=== PATIENT | female | born 1970 | race Caucasian/White ===

== ENCOUNTER 2016-11-24 12:50 | Emergency (ER) | payer MEDICAID ==
[2016-11-24 12:51] VITALS: BMI 36.8
[2016-11-24 13:52] VITALS: TEMP 98.7
[2016-11-24] MEDS ORDERED: OXYCODONE HCL 5 MG TABLET PO ONE ×2 (14:22→14:23)
--- NOTE | 2016-11-24 14:25 | EDPRACDOC ---
- General Chief Complaint: Fall Stated Complaint: FALL, NECK/L ARM/ LOWER BACK PAIN Time Seen by Provider: 11/24/16 14:16 Information Source: Patient - History of Present Illness Onset: 1145 today HPI: PT STATES FELL BACKWARDS TRYING TO PUT WOOD IN STOVE THEN WOODEN DOOR AND LADDER LANDED ON TOP OF HER HITTING HER IN THE HEAD PT C/O POSTERIOR NECK PAIN RADIATING DOWN INTO BILATERAL SHOULDERS AND STARTED HAVING LOW BACK PAIN AFTER ARRIVED TO THE ED. Pain Severity: Reports: Moderate Injuries/Pain Location: Reports: head, neck, back Reason for Fall: Reports: tripped Loss of Consciousness: no loss of consciousness Modifying Factors: improves with: movement Associated Symptoms (Fall): Reports: neck pain, other (LOW BACK PAIN) Allergies/Adverse Reactions: Allergies No Known Allergies Allergy (Verified 11/24/16 14:20) Home Medications: Ambulatory Orders Aspirin (Enteric Coated) [Halfprin] 81 mg PO DAILY 12/08/13 Clonazepam 0.5 mg PO TID 12/08/13 Dicyclomine HCl [Bentyl] 10 mg PO Q6H PRN 12/08/13 Divalproex Sodium [Depakote Sprinkle] 375 mg PO BID 12/08/13 Escitalopram Oxalate [Lexapro] 20 mg PO DAILY 12/08/13 Folic Acid 1 mg PO BID 12/08/13 Gemfibrozil [Lopid] 600 mg PO DAILY 12/08/13 Pravastatin [Pravachol] 40 mg PO BID 12/08/13 Albuterol Sulfate [Albuterol Sulfate Hfa] 1 - 2 puff INH Q4H PRN 04/29/14 Albuterol Sulfate [Ventolin] 2.5 mg NEB Q6H 04/29/14 Hydrocodone Bit/Acetaminophen [Lortab 5/325] 1 tab PO Q4H PRN #15 tab 03/14/15 Nebulizer [Erapid Nebulizer] 1 each MC UNK 03/14/15 Prednisone [Deltasone, Orasone] 20 mg PO DAILY #24 tab 03/14/15 Albuterol Sulfate 2.5 mg NEB Q6H PRN 05/31/15 Albuterol Sulfate [Proair Hfa] 2 puff INH Q6H PRN 05/31/15 Aspirin [Aspirin EC] 81 mg PO DAILY 05/31/15 CYANOCOBALAMIN (Vitamin B-12) [Vitamin B-12 (cyanocobalamin)] 1,000 mcg IM .MONTHLY 05/31/15 ClonazePAM [Klonopin] 0.5 mg PO BID PRN 05/31/15 Diazepam [Valium] 5 mg PO TID PRN #15 tablet 05/31/15 Escitalopram Oxalate [Lexapro] 20 mg PO BID 05/31/15 Levothyroxine Sodium [Synthroid] 175 mcg PO DAILY 05/31/15 Nebulizer [Erapid Nebulizer] 1 each MC .UNKNOWN 05/31/15 Oxycodone HCl/Acetaminophen [Percocet 5-325 mg Tablet] 1 tab PO Q6H PRN #20 tab 05/31/15 Pravastatin [Pravachol] 40 mg PO HS 05/31/15 Oxycodone Immediate Release [Oxycodone Immediate Release (OxyIR)] 5 mg PO Q6H PRN #10 tab 08/12/15 Silver Sulfadiazine [Silvadene] 20 gm TOP BID 7 Days 08/12/15 Cyclobenzaprine HCl [Flexeril] 10 mg PO TID #14 tablet 11/24/16 Hydrocodone Bit/Acetaminophen [Hydrocodon-Acetaminophen 5-325] 1 tab PO Q6H PRN #14 tab 11/24/16 ED Past Medical History - History Reviewed Yes Nurses notes reviewed and agree except as marked Travel Outside of [place] in the Last 3 Months?: No - Patient Medical History Neurological History: Reports: Seizures Cardiac History: Reports: Hypercholesterolemia Respiratory History: Reports: Asthma, COPD, Chronic Bronchitis Psychological History: Reports: Anxiety, Schizophrenia. Denies: Depression Systemic History: Reports: Anemia, Hyperthyroidism (S/P RADIATION THAT DESTROYED THYROID NOW ON SYNTHROID) - Family Medical History Reports: Hypertension (MOM, DAD, SISTER), Diabetes (MOM, DAD, SISTER), Stroke ( SISTER), Cardiac Disorders (DAD). Denies: Cancer - Social Medical History Smoking Status: Heavy tobacco smoker (5 or more cigarettes/day or daily pipe/ cigar) ETOH: None Substance Abuse: None Lives With: Other Lives In: Home EDM Review of Systems - Review of Systems ROS Negative Except as Marked: Yes All systems reviewed and were negative except as marked Constitutional: No Symptoms Reported. negative: Fever, Chills, Weakness, Fatigue, Loss of Appetite Eyes: No Symptoms Reported. negative: Redness, Blurred Vision, Double Vision, Discharge, Pain, Light Sensitive, Photophobia Ears: No Symptoms Reported. negative: Pain, Hearing Loss, Drainage, Ear Pulling Throat: No Symptoms Reported. negative: Pain, Swelling Nose: No Symptoms Reported. negative: Congestion, Bleeding, Discharge, Injection, Swelling, Deformity, Ecchymosis, Tender, Abrasion, Laceration Mouth: No Symptoms Reported. negative: Pain, Drooling Respiratory: No Symptoms Reported. negative: Cough, Brassy Cough, Barky Cough, Shortness of Breath, Wheezing, Hemoptysis Cardiovascular: No Symptoms Reported. negative: Chest Pain, Palpitations, Syncope, Edema, Orthopnea, PND, Skin Mottling, Cyanosis Gastrointestinal: No Symptoms Reported. negative: Pain, Constipation, Nausea, Vomiting, Diarrhea, Melena, Formula Intolerance Genitourinary: No Symptoms Reported. negative: Dysuria, Hematuria, Frequency, Discharge, Bleeding, Testicular Pain, Neurological: No Symptoms Reported. negative: Headache, Dizziness, Seizure, Numbness, Weakness, Speech Difficulty, Gait Difficulty Musculoskeletal: Back (LSPINE), Neck (POSTERIOR). negative: Arm, Ankle, Chestwall, Elbow, Forearm, Femur, Foot, Hand, Hip, Knee, Leg, Pelvis, Ribs, Shoulder, Wrist Integumentary: No Symptoms Reported. negative: Itching, Rash, Bruising, Wound Allergic/Immunologic: No Symptoms Reported. negative: Hives, Itching Hematologic: No Symptoms Reported. negative: Lymphadenopathy, Easy Bruising, Easy Bleeding Endocrine: No Symptoms Reported. negative: Weight Gain, Weight Loss Psychiatric: No Symptoms Reported. negative: Anxiety, Depression, Hallucinations, Insomnia, Suicidal - Physical Exam Constitutional: Alert (Awake), No apparent distress Oriented to: Time, Person, Place Last recorded Vital Signs: Last Vital Signs Temp 98.7 F 11/24/16 13:46 Pulse 87 11/24/16 13:46 Resp 18 11/24/16 13:46 BP 121/67 11/24/16 13:46 Pulse Ox 97 11/24/16 13:46 Oxygen Pulse Oxygen Saturation 97 O2 Device Room Air Oxygen Flow Rate Fraction of Inspired Oxygen ( FIO2) - HEENT Head: Normal ( normocephalic) Eye Exam: Normal (PERRL, EOMI, Sclera white) Oropharynx: Normal (Pharynx:Moist without exudate,Gums-no swelling) Tympanic Membrane: Normal ENT EAC: Normal TMJ: Normal Nose: No Symptoms Reported (septum midline) Neck: Midline, Paraspinal Tenderness, Tender, Other (PT IN C-COLLAR) - Respiratory/Cardiovascular Respiratory: Normal - CTA (BBS clear to auscultation without adventitious sounds ) Cardiovascular: Normal (RRR without murmur, gallop or rub) - GI Auscultation: Normal (NABS) Palpation: Normal (Soft,No rebound or guarding, non distended) Tenderness: Non tender Amaro's Sign: Negative - Bladder: Normal - Musculoskeletal Back: Lumbar TTP (TO LIGHT PALPATION) Extremities: Normal (Normal tone, Pulses 2+ No cyanosis or edema, FROM) - Integumentary Skin: Normal, Warm, Dry Lymphatics: Normal (no adenopathy) - Neurologic Memory Impaired: Normal Motor Function: Normal (Normal tone, Pulses 2+ No cyanosis or edema, FROM) Cranial Nerve: Normal (CN II-X11 intact sensation, strength 5/5) Cerebellar: Normal Mood Description: Normal Perception: Normal Other Exam Findings: NO OBVIOUS INJURIES NOTED ON EXAM. ED Injury/Fall Exam - Physical Exam Head Injury: no evidence of injury Extremity Exam: no evidence of injury Skin: Normal - Maria T Coma Score Best Eye Response (Maria T): (4) open spontaneously Best Verbal Response (Maria T): (5) oriented Best Motor Response ([place]): (6) obeys commands [place] Total: 15 - Differential Diagnosis Contusion, Fall, Fracture, Sprain, Strain - Diagnostic Imaging CT HD/NK Image interpreted by: Radiologist IMPRESSION: Negative CT of the head and cervical spine. LSPNE Image interpreted by: Radiologist IMPRESSION: 1. No acute finding. 2. Lower lumbar facet arthropathy. Decision Time to Discharge: 16:10 - Departure Disposition: Home Condition: Stable Final Diagnosis: MECHANICAL FALL Blunt head trauma Qualifiers: Encounter type: initial encounter Qualified Code(s): S09.8XXA - Other specified injuries of head, initial encounter Lumbar strain Qualifiers: Encounter type: initial encounter Qualified Code(s): S39.012A - Strain of muscle, fascia and tendon of lower back, initial encounter Instructions: RICE: Routine Care for Injuries, Core Strengthening Exercises ( GEN), Back Pain, Thoracic (Lumbar) Strain Education/Counseling Given To: Patient Education/Counseling Given Regarding: Diagnosis, Treatment, Prognosis, Follow Up Referrals: Vashti Le MD [Primary Care Provider] - One Week Prescriptions: Cyclobenzaprine HCl [Flexeril] 10 mg PO TID #14 tablet Hydrocodone Bit/Acetaminophen [Hydrocodon-Acetaminophen 5-325] 1 tab PO Q6H PRN #14 tab PRN Reason: Pain
--- NOTE | 2016-11-24 15:19 | DIRPT ---
CLINICAL DATA: Fall with head injury EXAM: CT HEAD WITHOUT CONTRAST CT CERVICAL SPINE WITHOUT CONTRAST TECHNIQUE: Multidetector CT imaging of the head and cervical spine was performed following the standard protocol without intravenous contrast. Multiplanar CT image reconstructions of the cervical spine were also generated. COMPARISON: CT head 05/31/2015 FINDINGS: CT HEAD FINDINGS Ventricle size is normal. Negative for acute or chronic infarction. Negative for hemorrhage or fluid collection. Negative for mass or edema. No shift of the midline structures. Calvarium is intact. CT CERVICAL SPINE FINDINGS Normal cervical alignment. No significant degenerative change. Negative for fracture. No focal bony lesion. Soft tissues the nectar negative. IMPRESSION: Negative CT of the head and cervical spine. Electronically Signed By: Sincere Henriquez M.D. On: 11/24/2016 15:17
--- NOTE | 2016-11-24 16:03 | DIRPT ---
CLINICAL DATA: Low back pain from fall. Initial encounter. EXAM: LUMBAR SPINE - COMPLETE 4+ VIEW COMPARISON: 04/29/2016 CT FINDINGS: No acute fracture or subluxation. No disc narrowing. Lower lumbar facet arthropathy with spurring, greatest on the left at L4-5 and on the right at L5-S1. IMPRESSION: 1. No acute finding. 2. Lower lumbar facet arthropathy. Electronically Signed By: Fran Mckay M.D. On: 11/24/2016 16:00
[2016-11-24 16:24] VITALS: BP 111/58; PULSE 61
== END 2016-11-24 16:23 | disposition home or self-care (01) ==
LOC: ED 12:50 → EDMC 16:23
DX: S09.90XA Unspecified injury of head, initial encounter (principal); S39.012A Strain of muscle, fascia and tendon of lower back, initial encounter; W01.198A Fall on same level from slipping, tripping and stumbling with subsequent striking against other object, initial encounter
CPT/HCPCS: 70450; 72110; 72125; 99283; J3490

== ENCOUNTER 2016-11-30 15:48 | Inpatient (IN) | payer MEDICAID ==
[~2016-11-30 15:48] MED LIST: ASPIRIN 325 MG TAB PO SCH
[2016-11-30 16:15] LABS: AUTOMATED BASOPHIL 0.9 % (0-2); AUTOMATED EOSINOPHIL 0.4 % (0-5); AUTOMATED LYMPH 14.2 % (17-44); AUTOMATED MONOCYTE 8.2 % (3-10); AUTOMATED NEUTROPHIL 76.3 % (45-76); MPV 8.4 fL (7.4-10.4)
[2016-11-30 16:28] LABS: CALCIUM 8.4 MG/DL (8.4-10.2); CALCULATED OSMOLALITY 258 MOs/Kg (270-290); CHLORIDE 100 mEq/L (98-107); GLUCOSE 100 MG/DL (70-99); SODIUM LEVEL 136 mEq/L (137-146); TOTAL PROTEIN 7.4 G/DL (6.3-8.2)
[2016-11-30 16:29] LABS: PARTIAL THROMB. TIME 27.7 SEC (22-35); PT-INR 1.1
[2016-11-30 16:43] LABS: BLOOD UREA NITROGEN 9 MG/DL (7-17)
--- NOTE | 2016-11-30 16:56 | DIRPT ---
CLINICAL DATA: Chest pain and tightness. Fever. Hypoxia. Asthma. EXAM: CHEST 2 VIEW COMPARISON: 03/14/2015 FINDINGS: The heart size and mediastinal contours are within normal limits. Both lungs are clear. The visualized skeletal structures are unremarkable. IMPRESSION: No active cardiopulmonary disease. Electronically Signed By: Ryan Watters M.D. On: 11/30/2016 16:54
[2016-11-30] MEDS ORDERED: METHYLPREDNISOLONE 125 MG/2 ML VIAL IV ONE (17:22)
[2016-11-30] MEDS ORDERED: Albuterol/Ipratropium Neb 3 ML NEB NEB ONE (17:22)
--- NOTE | 2016-11-30 17:34 | EDPRACDOC ---
- General Information Information Source: Patient Mode of Arrival: Car - History of Present Illness Onset: 2 days HPI: PT PRESENTS WITH COUGHING, CONGESTION AND GENERALIZED ACHING. STATES SHE HAS SUBSTERNAL CHEST PAIN AND SHOB. NO ACUTE DISTRESS NOTED. Chest Pain Location: Reports: Substernal Pain Radiation: Reports: None Symptoms Occur: Reports: Gradually Cardiac Risk Factors: Reports: Smoker PE Risk Factors: Reports: None Medications within 24 Hours: Reports: None Prehospital Care: Reports: None Pain Came On: Reports: Gradually Pain Status: Present Now Pain Description: Reports: Sharp, Stabbing Pain Severity: Moderate Pain Worsens With: Reports: Coughing, Breathing Pain Improves With: Reports: Nothing Associated Signs and Symptoms: Reports: SOB <Irma Xavier - Last Filed: 11/30/16 17:31> <Ignacio Artis - Last Filed: 11/30/16 18:13> - General Information Chief Complaint: Chest Pain Stated Complaint: COUGH & CONGESTION CP HX OF ASTHMA Time Seen by Provider: 11/30/16 17:14 Home Medications: Home Medications Clonazepam 0.5 mg PO TID 12/08/13 Dicyclomine HCl [Bentyl] 10 mg PO Q6H PRN 12/08/13 Divalproex Sodium [Depakote Sprinkle] 375 mg PO BID 12/08/13 Escitalopram Oxalate [Lexapro] 20 mg PO DAILY 12/08/13 Folic Acid 1 mg PO BID 12/08/13 Gemfibrozil [Lopid] 600 mg PO DAILY 12/08/13 Pravastatin [Pravachol] 40 mg PO BID 12/08/13 Albuterol Sulfate [Ventolin] 2.5 mg NEB Q6H 04/29/14 Nebulizer [Erapid Nebulizer] 1 item NEB UNK 03/14/15 Albuterol Sulfate [Proair Hfa] 2 puff INH Q6H PRN 05/31/15 Aspirin [Aspirin EC] 81 mg PO DAILY 05/31/15 Levothyroxine Sodium [Synthroid] 175 mcg PO DAILY 05/31/15 Oxycodone Immediate Release [Oxycodone Immediate Release (OxyIR)] 5 mg PO Q6H PRN #10 tab 08/12/15 Cetirizine HCl [Zyrtec] 10 mg PO DAILY 11/30/16 Allergies/Adverse Reactions: Allergies Allergy/AdvReac Type Severity Reaction Status Date / Time No Known Allergies Allergy Verified 11/30/16 15:57 ED Past Medical History - History Reviewed Yes Nurses notes reviewed and agree except as marked - Patient Medical History Neurological History: Reports: Seizures Cardiac History: Reports: Hypercholesterolemia Respiratory History: Reports: Asthma, COPD, Chronic Bronchitis Psychological History: Reports: Depression, Anxiety, Schizophrenia Systemic History: Reports: Anemia, Hyperthyroidism (S/P RADIATION THAT DESTROYED THYROID NOW ON SYNTHROID). Denies: Cancer Surgical History: Reports: Appendectomy, Hysterectomy - Family Medical History Reports: Hypertension (MOM, DAD, SISTER), Diabetes (MOM, DAD, SISTER), Stroke ( SISTER), Cardiac Disorders (DAD). Denies: Cancer - Social Medical History Smoking Status: Heavy tobacco smoker (5 or more cigarettes/day or daily pipe/ cigar) <Irma Xavier - Last Filed: 11/30/16 17:31> EDM Review of Systems - Review of Systems ROS Negative Except as Marked: Yes All systems reviewed and were negative except as marked <Irma Xavier - Last Filed: 11/30/16 17:31> - Physical Exam Constitutional: Alert Oriented to: Time, Person, Place Last recorded Vital Signs: Last Vital Signs Temp 99.0 F 11/30/16 15:57 Pulse 118 11/30/16 15:57 Resp 24 11/30/16 15:57 BP 132/63 11/30/16 15:57 Pulse Ox 92 11/30/16 15:57 Oxygen Pulse Oxygen Saturation 92 O2 Device Room Air Oxygen Flow Rate Fraction of Inspired Oxygen ( FIO2) - HEENT Head: Normal ( normocephalic) Eye Exam: Normal (PERRL, EOMI, Sclera white) Oropharynx: Normal (Pharynx:Moist without exudate,Gums-no swelling) Nose: No Symptoms Reported (septum midline) Neck: Normal (FROM, trachea at midline) - Respiratory/Cardiovascular Respiratory: Rhonchi, Tachypnea, Wheezes Cardiovascular: Tachycardia - GI Auscultation: Normal (NABS) Palpation: Normal (Soft,No rebound or guarding, non distended) Tenderness: Non tender Amaro's Sign: Negative Rectal Exam: Deferred - Musculoskeletal Back: Normal (Non-Tender) Extremities: Normal (Normal tone, Pulses 2+ No cyanosis or edema, FROM) - Integumentary Skin: Normal, Warm, Dry Lymphatics: Normal (no adenopathy) - Neurologic Memory Impaired: Normal Motor Function: Normal (Normal tone, Pulses 2+ No cyanosis or edema, FROM) Cranial Nerve: Normal (CN II-X11 intact sensation, strength 5/5) Cerebellar: Normal Mood Description: Normal Perception: Normal <Irma Xavier - Last Filed: 11/30/16 17:31> - Physical Exam Last recorded Vital Signs: Last Vital Signs Temp 99.0 F 11/30/16 15:57 Pulse 118 11/30/16 15:57 Resp 24 11/30/16 15:57 BP 132/63 11/30/16 15:57 Pulse Ox 92 11/30/16 15:57 Oxygen Pulse Oxygen Saturation 92 O2 Device Room Air Oxygen Flow Rate Fraction of Inspired Oxygen ( FIO2) <Ignacio Artis - Last Filed: 11/30/16 18:13> ED Chest Pain Exam - Respiratory/Cardiovascular Respiratory: Rhonchi, Tachypnea, Wheezes Cardiovascular/Chest: Tachycardia Radial Pulse: Normal Femoral Pulse: Normal Pedal Pulse: Normal Carotid Arteries: Normal Edema: negative: 1+, 2+, 3+, 4+, 5, 6 Chest Palpation: Normal <Irma Xavier - Last Filed: 11/30/16 17:31> - Differential Diagnosis Pneumonia, Other - Action Patient received Aspirin within last 24 hours?: No ASA given in the ED: No Patient received Beta Sanford within last 24hrs: No - Results All Results Reviewed and Normal except as Highlighted below: Yes 11/30/16 16:05 11/30/16 16:05 WBC 9.7 xk/uL (3.8-10.8) 11/30/16 16:05 RBC 4.20 xM/uL (4.20-5.40) 11/30/16 16:05 Hgb 14.2 g/dL (12.0-16.0) 11/30/16 16:05 Hct 41.2 % (36-47) 11/30/16 16:05 MCV 98 fL (81-99) 11/30/16 16:05 MCH 33.9 pg (27-32) H 11/30/16 16:05 MCHC 34.6 g/dl (33-36) 11/30/16 16:05 RDW 12.5 % (11.5-14.5) 11/30/16 16:05 Plt Count 296 xk/uL (130-400) 11/30/16 16:05 MPV 8.4 fL (7.4-10.4) 11/30/16 16:05 Neut % (Auto) 76.3 % (45-76) H 11/30/16 16:05 Lymph % (Auto) 14.2 % (17-44) L 11/30/16 16:05 Tucker % (Auto) 8.2 % (3-10) 11/30/16 16:05 Eos % (Auto) 0.4 % (0-5) 11/30/16 16:05 Baso % (Auto) 0.9 % (0-2) 11/30/16 16:05 Absolute Neuts (auto) 7.37 xk/uL (1.7-8.2) 11/30/16 16:05 Absolute Lymphs (auto) 1.36 xk/uL (0.65-4.75) 11/30/16 16:05 PT 11.1 SEC (9.2-11.2) 11/30/16 16:05 INR 1.1 11/30/16 16:05 APTT 27.7 SEC (22-35) 11/30/16 16:05 Sodium 136 mEq/L (137-146) L 11/30/16 16:05 Potassium 3.7 mEq/L (3.5-5.1) 11/30/16 16:05 Chloride 100 mEq/L (98-107) 11/30/16 16:05 Carbon Dioxide 25 mMOL/L (22-33) 11/30/16 16:05 Anion Gap 15 mEq/L (8-16) 11/30/16 16:05 BUN 9 MG/DL (7-17) 11/30/16 16:05 Creatinine 0.80 MG/DL (0.52-1.04) 11/30/16 16:05 Estimated GFR (MDRD) > 60 mL/min (>=60) 11/30/16 16:05 Glucose 100 MG/DL (70-99) H 11/30/16 16:05 Calculated Osmolality 258 MOs/Kg (270-290) L 11/30/16 16:05 Calcium 8.4 MG/DL (8.4-10.2) 11/30/16 16:05 AST 25 IU/L (14-36) 11/30/16 16:05 ALT 46 IU/L (9-52) 11/30/16 16:05 Alkaline Phosphatase 81 IU/L (38-126) 11/30/16 16:05 Troponin I < 0.01 ng/mL (<.04) 11/30/16 16:05 Siw-W-Veipcktbmay Pept 48 pg/mL (0-450) 11/30/16 16:05 Total Protein 7.4 G/DL (6.3-8.2) 11/30/16 16:05 Albumin 4.0 G/DL (3.5-5.0) 11/30/16 16:05 Lab Results 11/30/16 11/30/16 11/30/16 16:05 16:05 16:05 WBC 9.7 RBC 4.20 Hgb 14.2 Hct 41.2 MCV 98 MCH 33.9 H MCHC 34.6 RDW 12.5 Plt Count 296 MPV 8.4 Neut % (Auto) 76.3 H Lymph % (Auto) 14.2 L Tucker % (Auto) 8.2 Eos % (Auto) 0.4 Baso % (Auto) 0.9 Absolute Neuts (auto) 7.37 Absolute Lymphs (auto) 1.36 PT 11.1 INR 1.1 APTT 27.7 Sodium 136 L Potassium 3.7 Chloride 100 Carbon Dioxide 25 Anion Gap 15 BUN 9 Creatinine 0.80 Estimated GFR (MDRD) > 60 Glucose 100 H Calculated Osmolality 258 L Calcium 8.4 AST 25 ALT 46 Alkaline Phosphatase 81 Troponin I < 0.01 Isr-H-Vgkfstylnxt Pept 48 Total Protein 7.4 Albumin 4.0 Laboratory Results - last 24 hr 11/30/16 11/30/16 11/30/16 16:05 16:05 16:05 WBC 9.7 RBC 4.20 Hgb 14.2 Hct 41.2 MCV 98 MCH 33.9 H MCHC 34.6 RDW 12.5 Plt Count 296 MPV 8.4 Neut % (Auto) 76.3 H Lymph % (Auto) 14.2 L Tucker % (Auto) 8.2 Eos % (Auto) 0.4 Baso % (Auto) 0.9 Absolute Neuts (auto) 7.37 Absolute Lymphs (auto) 1.36 PT 11.1 INR 1.1 APTT 27.7 Sodium 136 L Potassium 3.7 Chloride 100 Carbon Dioxide 25 Anion Gap 15 BUN 9 Creatinine 0.80 Estimated GFR (MDRD) > 60 Glucose 100 H Calculated Osmolality 258 L Calcium 8.4 AST 25 ALT 46 Alkaline Phosphatase 81 Troponin I < 0.01 Uoo-B-Evunsjmzjif Pept 48 Total Protein 7.4 Albumin 4.0 Laboratory Results 11/30/16 16:05 11/30/16 16:05 <Irma Xavier W - Last Filed: 11/30/16 17:31> - Results 11/30/16 16:05 11/30/16 16:05 WBC 9.7 xk/uL (3.8-10.8) 11/30/16 16:05 RBC 4.20 xM/uL (4.20-5.40) 11/30/16 16:05 Hgb 14.2 g/dL (12.0-16.0) 11/30/16 16:05 Hct 41.2 % (36-47) 11/30/16 16:05 MCV 98 fL (81-99) 11/30/16 16:05 MCH 33.9 pg (27-32) H 11/30/16 16:05 MCHC 34.6 g/dl (33-36) 11/30/16 16:05 RDW 12.5 % (11.5-14.5) 11/30/16 16:05 Plt Count 296 xk/uL (130-400) 11/30/16 16:05 MPV 8.4 fL (7.4-10.4) 11/30/16 16:05 Neut % (Auto) 76.3 % (45-76) H 11/30/16 16:05 Lymph % (Auto) 14.2 % (17-44) L 11/30/16 16:05 Tucker % (Auto) 8.2 % (3-10) 11/30/16 16:05 Eos % (Auto) 0.4 % (0-5) 11/30/16 16:05 Baso % (Auto) 0.9 % (0-2) 11/30/16 16:05 Absolute Neuts (auto) 7.37 xk/uL (1.7-8.2) 11/30/16 16:05 Absolute Lymphs (auto) 1.36 xk/uL (0.65-4.75) 11/30/16 16:05 PT 11.1 SEC (9.2-11.2) 11/30/16 16:05 INR 1.1 11/30/16 16:05 APTT 27.7 SEC (22-35) 11/30/16 16:05 Puncture Site Right radial 11/30/16 17:30 pH 7.470 pH UNITS (7.35-7.45) H 11/30/16 17:30 pCO2 36.0 mmHg (35-45) 11/30/16 17:30 pO2 57.0 mmHg (80-100) L 11/30/16 17:30 HCO3 26.2 MMOL/L (22-26) H 11/30/16 17:30 Total CO2 27.3 MMOL/L (23-27) H 11/30/16 17:30 Base Excess 2.7 (+/- 2) H 11/30/16 17:30 FiO2 % 21% 11/30/16 17:30 Specimen Drawn By Stana 11/30/16 17:30 Sodium 136 mEq/L (137-146) L 11/30/16 16:05 Potassium 3.7 mEq/L (3.5-5.1) 11/30/16 16:05 Chloride 100 mEq/L (98-107) 11/30/16 16:05 Carbon Dioxide 25 mMOL/L (22-33) 11/30/16 16:05 Anion Gap 15 mEq/L (8-16) 11/30/16 16:05 BUN 9 MG/DL (7-17) 11/30/16 16:05 Creatinine 0.80 MG/DL (0.52-1.04) 11/30/16 16:05 Estimated GFR (MDRD) > 60 mL/min (>=60) 11/30/16 16:05 Glucose 100 MG/DL (70-99) H 11/30/16 16:05 Calculated Osmolality 258 MOs/Kg (270-290) L 11/30/16 16:05 Calcium 8.4 MG/DL (8.4-10.2) 11/30/16 16:05 Total Bilirubin 0.5 MG/DL (0.2-1.3) 11/30/16 16:05 AST 25 IU/L (14-36) 11/30/16 16:05 ALT 46 IU/L (9-52) 11/30/16 16:05 Alkaline Phosphatase 81 IU/L (38-126) 11/30/16 16:05 Troponin I < 0.01 ng/mL (<.04) 11/30/16 16:05 Zbf-U-Nobnryrfbwc Pept 48 pg/mL (0-450) 11/30/16 16:05 Total Protein 7.4 G/DL (6.3-8.2) 11/30/16 16:05 Albumin 4.0 G/DL (3.5-5.0) 11/30/16 16:05 Microbiology 11/30/16 17:15 Influenza Type A Antigen Screen - Final N/P - Naso/Pharyngeal NEGATIVE Please note: A NEGATIVE result does not exclude an influenza virus infection. It is a presumptive result and, if required, confirmation should be done using either a virus culture or an FDA-cleared influenza A&B molecular assay. ("NORMAL" value = "NEGATIVE".) Influenza Type B Antigen Screen - Final NEGATIVE Please note: A NEGATIVE result does not exclude an influenza virus infection. It is a presumptive result and, if required, confirmation should be done using either a virus culture or an FDA-cleared influenza A&B molecular assay. ("NORMAL" value = "NEGATIVE".) Lab Results 11/30/16 11/30/16 11/30/16 17:30 16:05 16:05 WBC 9.7 RBC 4.20 Hgb 14.2 Hct 41.2 MCV 98 MCH 33.9 H MCHC 34.6 RDW 12.5 Plt Count 296 MPV 8.4 Neut % (Auto) 76.3 H Lymph % (Auto) 14.2 L Tucker % (Auto) 8.2 Eos % (Auto) 0.4 Baso % (Auto) 0.9 Absolute Neuts (auto) 7.37 Absolute Lymphs (auto) 1.36 PT 11.1 INR 1.1 APTT 27.7 Puncture Site Right radial pH 7.470 H pCO2 36.0 pO2 57.0 L HCO3 26.2 H Total CO2 27.3 H Base Excess 2.7 H FiO2 % 21% Specimen Drawn By Stana Sodium Potassium Chloride Carbon Dioxide Anion Gap BUN Creatinine Estimated GFR (MDRD) Glucose Calculated Osmolality Calcium Total Bilirubin AST ALT Alkaline Phosphatase Troponin I Xzx-P-Wgldyeqbeij Pept Total Protein Albumin 11/30/16 16:05 WBC RBC Hgb Hct MCV MCH MCHC RDW Plt Count MPV Neut % (Auto) Lymph % (Auto) Tucker % (Auto) Eos % (Auto) Baso % (Auto) Absolute Neuts (auto) Absolute Lymphs (auto) PT INR APTT Puncture Site pH pCO2 pO2 HCO3 Total CO2 Base Excess FiO2 % Specimen Drawn By Sodium 136 L Potassium 3.7 Chloride 100 Carbon Dioxide 25 Anion Gap 15 BUN 9 Creatinine 0.80 Estimated GFR (MDRD) > 60 Glucose 100 H Calculated Osmolality 258 L Calcium 8.4 Total Bilirubin 0.5 AST 25 ALT 46 Alkaline Phosphatase 81 Troponin I < 0.01 Kdl-N-Ebapmrohwwq Pept 48 Total Protein 7.4 Albumin 4.0 Laboratory Results - last 24 hr 11/30/16 11/30/16 11/30/16 16:05 16:05 16:05 WBC 9.7 RBC 4.20 Hgb 14.2 Hct 41.2 MCV 98 MCH 33.9 H MCHC 34.6 RDW 12.5 Plt Count 296 MPV 8.4 Neut % (Auto) 76.3 H Lymph % (Auto) 14.2 L Tucker % (Auto) 8.2 Eos % (Auto) 0.4 Baso % (Auto) 0.9 Absolute Neuts (auto) 7.37 Absolute Lymphs (auto) 1.36 PT 11.1 INR 1.1 APTT 27.7 Puncture Site pH pCO2 pO2 HCO3 Total CO2 Base Excess FiO2 % Specimen Drawn By Sodium 136 L Potassium 3.7 Chloride 100 Carbon Dioxide 25 Anion Gap 15 BUN 9 Creatinine 0.80 Estimated GFR (MDRD) > 60 Glucose 100 H Calculated Osmolality 258 L Calcium 8.4 Total Bilirubin 0.5 AST 25 ALT 46 Alkaline Phosphatase 81 Troponin I < 0.01 Jxe-I-Uojiyeydxdd Pept 48 Total Protein 7.4 Albumin 4.0 11/30/16 17:30 WBC RBC Hgb Hct MCV MCH MCHC RDW Plt Count MPV Neut % (Auto) Lymph % (Auto) Tucker % (Auto) Eos % (Auto) Baso % (Auto) Absolute Neuts (auto) Absolute Lymphs (auto) PT INR APTT Puncture Site Right radial pH 7.470 H pCO2 36.0 pO2 57.0 L HCO3 26.2 H Total CO2 27.3 H Base Excess 2.7 H FiO2 % 21% Specimen Drawn By Stana Sodium Potassium Chloride Carbon Dioxide Anion Gap BUN Creatinine Estimated GFR (MDRD) Glucose Calculated Osmolality Calcium Total Bilirubin AST ALT Alkaline Phosphatase Troponin I Pjx-N-Bagszaetdee Pept Total Protein Albumin Laboratory Results 11/30/16 16:05 11/30/16 16:05 <Ignacio Artis - Last Filed: 11/30/16 18:13> - Departure Education/Counseling Given To: Patient Education/Counseling Given Regarding: Diagnosis, Treatment, Prognosis, Follow Up <Irma Xavier - Last Filed: 11/30/16 17:31> - Departure Yes I personally saw and evaluated the patient. Disposition: Admit IP To This Hospital Decision to Admit Time: 18:13 Decision to admit date: 11/30/16 Decision to admit: from ED - Physician Consulted Hospitalist Time Called: 18:13 Provider Called: Eduardo Matson Time [employer] Returned Call: 18:13 <Ignacio Artis - Last Filed: 11/30/16 18:13> - Departure Condition: Stable Final Diagnosis: Acute exacerbation of COPD with asthma
[2016-11-30 17:39] LABS: ABG Draw Site Right Radial; ALLEN'S TEST PASS; BEb 2.7 (+/- 2); TCO2 27.3 MMOL/L (23-27)
[2016-11-30] MEDS ORDERED: ASPIRIN (CHEWABLE) 81 MG TAB PO ONE (18:30)
--- NOTE | 2016-11-30 19:17 | HISTPHYS ---
- Chief Complaint chest pain - History of Present Illness PRIMARY CARE PROVIDER: Dr. Patino HPI: The patient is a 46 yo woman who presents with chest pain and shortness of breath. Onset: 3-4 days ago. Duration: intermittent. Location: Left chest. Radiation: to left shoulder and left back. Character: Heaviness up to 10/10 at times. Currently is 8/10. Alleviated by: Nothing. Exacerbated by: sometimes with exertion. Associated Symptoms: Shortness of breath. Coughing x 1-2 days, non-productive. Wheezing. Diaphoresis, has felt clammy. Fever up to 102.9 and chills at home. Palpitations are chronic. No headaches. One day felt like her arms were in blood pressure cuffs and felt squeezing sensation. No focal weakness or numbness. No weight gain or leg swelling. Treatments: none at home except usual medications. - Medical History Cardiac History: Reports: Stress Test, Hypercholesterolemia Respiratory History: Reports: Asthma, COPD, Chronic Bronchitis, Other (Not on home oxygen.) Musculoskeletal History: Reports: Arthritis Systemic History: Reports: Anemia, Hyperthyroidism (RESOLVED), Hypothyroidism (S /P RADIATION THAT DESTROYED THYROID NOW ON SYNTHROID). Denies: Cancer Neurological History: Reports: Migraine Psychological History: Reports: Depression, Anxiety - Surgical History Reports: Appendectomy, Hysterectomy, Other (Ablation of the thyroid 2002. Nose surgery.) - Medictions/Allergies Allergies No Known Allergies Allergy (Verified 11/30/16 15:57) Current Medication List: Reviewed Home Medications Clonazepam 0.5 mg PO TID 12/08/13 Dicyclomine HCl [Bentyl] 10 mg PO Q6H PRN 12/08/13 Divalproex Sodium [Depakote Sprinkle] 375 mg PO BID 12/08/13 Escitalopram Oxalate [Lexapro] 20 mg PO DAILY 12/08/13 Folic Acid 1 mg PO BID 12/08/13 Gemfibrozil [Lopid] 600 mg PO DAILY 12/08/13 Pravastatin [Pravachol] 40 mg PO BID 12/08/13 Albuterol Sulfate [Ventolin] 2.5 mg NEB Q6H 04/29/14 Nebulizer [Erapid Nebulizer] 1 item NEB UNK 03/14/15 Albuterol Sulfate [Proair Hfa] 2 puff INH Q6H PRN 05/31/15 Aspirin [Aspirin EC] 81 mg PO DAILY 05/31/15 Levothyroxine Sodium [Synthroid] 175 mcg PO DAILY 05/31/15 Oxycodone Immediate Release [Oxycodone Immediate Release (OxyIR)] 5 mg PO Q6H PRN #10 tab 08/12/15 Cetirizine HCl [Zyrtec] 10 mg PO DAILY 11/30/16 - Family History Reports: Hypertension (MOM, DAD, SISTER), Diabetes (Mother, Father, SISTER), Stroke (SISTER), Cardiac Disorders (Father: [employer] at 43yo. MGM, MGF, and PGM : MIs.). Denies: Cancer - Social History Smoking Status: Heavy tobacco smoker (5 or more cigarettes/day or daily pipe/ cigar) (Currently 2 ppd. Started 16 yo.) Social History: Denies: Alcohol Use, Substance Use Disorder - Review of Systems GENERAL: Fever, chills, diaphoresis. Positive for fatigue/malaise. HEENT: No ear pain or discharge. No nasal discharge or bleeding. No throat pain or swelling. No eye pain or eye redness. RESPIRATORY: Cough, wheezing, and shortness of breath. CARDIOVASCULAR: Chest pain. Palpitations are chronic. GI: No abdominal pain, nausea, vomiting, diarrhea, constipation, or bloody stool. NEUROLOGICAL: No headaches. One day felt like her arms were in blood pressure cuffs and felt squeezing sensation. No focal weakness or numbness. INTEGUMENT: no rashes, itching, or lesions. LYMPHATIC SYSTEM: no lymph node swelling or pain. MUSCULOSKELETAL: no pain or joint swelling. GENITOURINARY: No dysuria or hematuria. ENDOCRINE: No polyuria or polydipsia. HEME: No chronic anemia, bleeding, or easy bruising. - Physical Exam Vital Signs: Initial Vitals Temperature 99.0 F 11/30/16 15:57 Pulse Rate 118 11/30/16 15:57 Respiratory Rate 24 11/30/16 15:57 Blood Pressure 132/63 11/30/16 15:57 Pulse Oxygen Saturation 92 11/30/16 15:57 Vital Signs - 24 hr 11/30/16 11/30/16 15:57 18:19 Temperature 99.0 F Pulse Rate 118 101 Respiratory 24 24 Rate Blood Pressure 132/63 117/61 Pulse Oxygen 92 91 Saturation Weight: 103.6 kg Height: 5 feet 5 inches BMI: 38 - Other Exam Other Exam Findings: GENERAL: Ill-appearing, well nourished, in acute distress. HEENT: Normocephalic, atraumatic; pupils equal and round. Nares patent, without discharge or bleeding. No oropharyngeal lesions or erythema. Mucous membranes are dry. NECK: is supple, no masses, trachea midline. RESPIRATORY: Clear to auscultation bilaterally. Chest wall movements are symmetric. No use of accessory muscles to breathe. Intermittent tachypnea. Inspiratory and expiratory wheezing bilaterally. Scattered coarse breath sounds. No rales. CARDIOVASCULAR: Normal S1, S2. No murmurs, rubs, or gallops. PMI non-displaced. Carotids: no carotid bruits. Mild tachycardia. DP pulses 2+ bilaterally. GI: soft, nontender, non-distended, normal active bowel sounds. No hepatosplenomegaly. INTEGUMENT: Clean, dry, and intact. No rashes. No lesions. MUSCULOSKELETAL: Moving all extremities. No cyanosis. Clubbing. Edema: none bilaterally. NEUROLOGICAL: Cranial nerves 2-12 grossly intact. Motor 5/5 throughout. Reflexes : 2+ bilaterally. Babinski: toes downgoing bilaterally. Intact Finger to nose. Sensory grossly intact to light touch. Intact rapid alternating movements bilaterally. No pronator drift. PSYCHIATRIC: Fully oriented. Normal and appropriate affect. LYMPHATIC: No cervical lymphadenopathy. No supraclavicular lymphadenopathy. - Lab Results Laboratory Results - last 24 hr 11/30/16 11/30/16 11/30/16 16:05 16:05 16:05 WBC 9.7 RBC 4.20 Hgb 14.2 Hct 41.2 MCV 98 MCH 33.9 H MCHC 34.6 RDW 12.5 Plt Count 296 MPV 8.4 Neut % (Auto) 76.3 H Lymph % (Auto) 14.2 L Logan % (Auto) 8.2 Eos % (Auto) 0.4 Baso % (Auto) 0.9 Absolute Neuts (auto) 7.37 Absolute Lymphs (auto) 1.36 PT 11.1 INR 1.1 APTT 27.7 Puncture Site pH pCO2 pO2 HCO3 Total CO2 Base Excess FiO2 % Specimen Drawn By Sodium 136 L Potassium 3.7 Chloride 100 Carbon Dioxide 25 Anion Gap 15 BUN 9 Creatinine 0.80 Estimated GFR (MDRD) > 60 Glucose 100 H Calculated Osmolality 258 L Calcium 8.4 Total Bilirubin 0.5 AST 25 ALT 46 Alkaline Phosphatase 81 Troponin I < 0.01 Qlf-M-Vyrnchcbevq Pept 48 Total Protein 7.4 Albumin 4.0 11/30/16 17:30 WBC RBC Hgb Hct MCV MCH MCHC RDW Plt Count MPV Neut % (Auto) Lymph % (Auto) Logan % (Auto) Eos % (Auto) Baso % (Auto) Absolute Neuts (auto) Absolute Lymphs (auto) PT INR APTT Puncture Site Right radial pH 7.470 H pCO2 36.0 pO2 57.0 L HCO3 26.2 H Total CO2 27.3 H Base Excess 2.7 H FiO2 % 21% Specimen Drawn By Stana Sodium Potassium Chloride Carbon Dioxide Anion Gap BUN Creatinine Estimated GFR (MDRD) Glucose Calculated Osmolality Calcium Total Bilirubin AST ALT Alkaline Phosphatase Troponin I Bsc-F-Fifmpkqntpl Pept Total Protein Albumin - Diagnostic Findings DIAGNOSTIC DATA: EK bpm. Sinus tachycardia. Nonspecific T-wave abnormality. Flat T-wave in leads 3, AVF, V5, and V6. Inverted T-wave in leads V2, V3, and V4. Reviewed EKG personally. IMAGING: Chest x-ray, viewed personally: EXAM: CHEST 2 VIEW COMPARISON: 03/14/2015 FINDINGS: The heart size and mediastinal contours are within normal limits. Both lungs are clear. The visualized skeletal structures are unremarkable. IMPRESSION: No active cardiopulmonary disease. - Assessment (1) Acute exacerbation of COPD with asthma J44.1 - CHRONIC OBSTRUCTIVE PULMONARY DISEASE W (ACUTE) EXACERBATION; J45.901 - UNSPECIFIED ASTHMA WITH (ACUTE) EXACERBATION Acute Present on Admission: Yes COPD exacerbation, severe. Plan: Nebs of Duoneb q 6 hours scheduled and albuterol q 2 hours prn. Sputum culture ordered. IV ceftriaxone and IV azithromycin. IV methylprednisolone. Continuous oxygen support. Keep sats below 95% due to COPD. (2) Hypoxemia R09.02 - HYPOXEMIA Acute Present on Admission: Yes Patient has dyspnea. Patient's PO2 is low. Technically, she meets criteria for acute respiratory failure, but she appears to be improving, so we will use the diagnosis of hypoxia. Plan: Place patient on oxygen by Venti Mask 40% and adjust as needed. Monitor oxygen saturation levels and keep O2 sats greater than 92%. (3) Chest pain R07.9 - CHEST PAIN, UNSPECIFIED Acute Present on Admission: Yes Rule out myocardial infarction. Plan: Obtain cardiac enzymes x 3. Place patient on telemetry. Give patient oxygen, aspirin. Give nitroglycerin, and morphine as needed for chest pain. Give statin. Stress test has been ordered for the morning. Patient has been advised, if the stress test is negative, to follow up with the primary care provider for evaluation of other potential causes of the chest pain. Note: if her COPD is not improving by the morning, then may need to hold off on the stress test. (4) Hyperlipidemia E78.5 - HYPERLIPIDEMIA, UNSPECIFIED Acute Present on Admission: Yes Plan: Statin. Will increase temporarily to atorvastatin 80 mg p.o. daily. Case Care Discussed with: Patient, Family, Nursing Staff
[2016-11-30 19:53] VITALS: BMI 37.8
[2016-11-30] MEDS ORDERED: ALBUTEROL 0.083% 3 ML NEB NEB PRN (20:27)
[2016-11-30] MEDS ORDERED: Vaccine Screening Complete SCH (21:00)
[2016-11-30] MEDS ORDERED: PROMETHAZINE 25 MG/ML VIAL IV PRN (22:18)
[2016-11-30] MEDS ORDERED: BISACODYL 5 MG TAB PO PRN (22:18)
[2016-11-30] MEDS ORDERED: TEMAZEPAM 15 MG CAP PO PRN (22:18)
[2016-11-30] MEDS ORDERED: GUAIFEN 100 MG-DEXTROMETH 10 MG PER 5 ML PO PRN (22:18)
[2016-11-30] MEDS ORDERED: Aluminum;Magnesium;Simethicone 30 ML UDC PO PRN (22:18)
[2016-11-30] MEDS ORDERED: Docusate Sodium 100 MG CAP PO PRN (22:18)
[2016-11-30] MEDS ORDERED: SENNA CONCENTRATE TAB PO PRN (22:18)
[2016-11-30] MEDS ORDERED: BENZONATATE 100 MG PERLES PO PRN (22:18)
[2016-11-30] MEDS ORDERED: ACETAMINOPHEN 325 MG/TAB TABLET PO PRN (22:18)
[2016-11-30] MEDS ORDERED: SIMETHICONE 80 MG TAB PO PRN (22:18)
[2016-11-30] MEDS ORDERED: ONDANSETRON HCL 4 MG/2 ML VIAL IV PRN (22:18)
[2016-11-30] MEDS ORDERED: ACETAMINOPHEN 325 MG SUPP PR PRN (22:18)
[2016-11-30] MEDS ORDERED: DICYCLOMINE 10 MG CAP PO PRN (22:54)
[2016-11-30] MEDS: NITROGLYCERINE 0.4 MG TAB SL PRN ×3 (22:56→23:31)
[2016-11-30] MEDS ORDERED: Pharmacy Order Set Alert SCH (23:00)
[2016-11-30] MEDS ORDERED: ATORVASTATIN 80 MG TAB PO SCH (23:00)
[2016-11-30] MEDS ORDERED: ENOXAPARIN 40 MG/0.4 ML PFS SQ SCH ×2 (23:00→23:30)
[2016-11-30] MEDS: MORPHINE 2 MG/ML INJECTION IV PRN (23:47)
[2016-11-30] MEDS: DIVALPROEX SODIUM 125 MG CAP PO SCH (23:51)
[2016-11-30] MEDS: FOLIC ACID 1 MG TAB PO SCH (23:51)
[2016-11-30] MEDS: ENOXAPARIN 60 MG/0.6 ML PFS SQ SCH (23:52)
[2016-11-30] MEDS: ESCITALOPRAM OXALATE 10 MG TAB PO SCH (23:59)
[2016-11-30] MEDS: LEVOTHYROXINE 100 MCG, LEVOTHYROXINE 75 MCG PO SCH ×2 (23:59)
[2016-12-01] MEDS: CARVEDILOL 3.125 MG TAB PO SCH ×3 (00:02→21:28)
[2016-12-01] MEDS: LISINOPRIL 5 MG TAB PO SCH ×2 (00:02→10:27)
[2016-12-01] MEDS: CEFTRIAXONE 1 GM in D5W 100 ML IV SCH ×2 (00:20→23:20)
[2016-12-01] MEDS: METHYLPREDNISOLONE 125 MG/2 ML VIAL IV SCH ×4 (00:40→23:20)
[2016-12-01] MEDS: Albuterol/Ipratropium Neb 3 ML NEB NEB SCH ×4 (01:10→19:56)
[2016-12-01] MEDS: AZITHROMYCIN 500 MG in D5W 250 ML IV SCH (01:45)
[2016-12-01 05:26] LABS: MPV 8.9 fL (7.4-10.4)
[2016-12-01 05:34] LABS: BLOOD UREA NITROGEN 12 MG/DL (7-17); CALCIUM 8.8 MG/DL (8.4-10.2); CALCULATED OSMOLALITY 264 MOs/Kg (270-290); CHLORIDE 97 mEq/L (98-107); GLUCOSE 202 MG/DL (70-99); LDL (calc.) 100.4 MG/DL (<100); SODIUM LEVEL 134 mEq/L (137-146); VLDL (calc.) 20.6 MG/DL (5-40)
[2016-12-01] MEDS ORDERED: ASPIRIN 325 MG TAB PO SCH (08:00)
[2016-12-01] MEDS ORDERED: DOBUTamine 500,000 MCG/250 ML RTU IV ONE (09:00)
[2016-12-01] MEDS ORDERED: SODIUM CHLORIDE 0.9% 10 ML FLUSH FLUSH ONE (09:00)
[2016-12-01] MEDS ORDERED: CETIRIZINE HCL 10 MG TAB PO SCH ×2 (09:00→23:45)
[2016-12-01] MEDS ORDERED: Non-Formulary Medication ITEM (Escitalopram Oxalate [Lexapro] 20 MG) PO SCH (09:00)
[2016-12-01] MEDS ORDERED: GEMFIBROZIL 600 MG TAB PO SCH (09:00)
[2016-12-01] MEDS ORDERED: LEVOTHYROXINE SODIUM 175 MCG PO SCH (09:00)
[2016-12-01] MEDS: OXYCODONE HCL 5 MG TABLET PO PRN ×2 (10:25→19:31)
[2016-12-01] MEDS: DIVALPROEX SODIUM 125 MG CAP PO SCH ×2 (10:26→21:27)
[2016-12-01] MEDS: FOLIC ACID 1 MG TAB PO SCH ×2 (11:31→16:06)
--- NOTE | 2016-12-01 14:41 | GENMEDPROG ---
Chief Complaint: L PLEURITIC PAIN SAME, COUGH IS BETTER Notes Reviewed: Yes Events from last night noted and discussed with Clinical Staff Current Medication List: Reviewed Currently: Reports: Cough, Wheezing (THIS AM) DVT Prophylaxis: No - Physical Examination Vital Signs and I&O: Last Vital Signs Temp 98 F 12/01/16 11:49 Pulse 82 12/01/16 11:49 Resp 20 12/01/16 11:49 BP 113/63 12/01/16 11:49 Pulse Ox 93 12/01/16 14:18 Oxygen Pulse Oxygen Saturation 93 O2 Device Nasal Cannula Oxygen Flow Rate 2 Fraction of Inspired Oxygen ( 40 FIO2) Intake & Output 11/28/16 11/29/16 11/30/16 12/01/16 23:59 23:59 23:59 23:59 Intake Total 751 Output Total 400 Balance 351 Patient's weight 102.92 kg 102.829 kg General: Alert HEENT: Normal (Normocephalic, atraumatic;EOMI.Sclera white, Nares patent, without discharge or bleeding. No oropharyngeal lesions or erythema. Mucous membranes are dry.) Neck: Non-tender, Full range of motion, Normal Trachea alignment, Normal inspection (No cervical lymphadenopathy. No supraclavicular lymphadenopathy.), No Masses palpable, Supple Lymphatics: Normal (no adenopathy) Respiratory: Diminished. negative: Rales, Rhonchi, Stridor, Tachypnea, Wheezes Cardiovascular: Regular rate and rhythm (No bradycardia or tachycardia), Normal S1, No Gallops,Rubs/Murmurs, Normal S2, Good Pedal Pulses (DP pulses 2+ bilaterally) GI: Normal bowel sounds (normal active sounds), Soft (non-distended), Non tender , No hepatospenomegaly, No masses, Obese (BMI 37.7) Extremities/Musculoskeletal: Normal pulses (DP pulses 2+ bilaterally) Skin: Warm,Dry and Intact, No rashes, No significant lesion Neurological: Strength at 5/5 X4 ext (Motor 5/5 throughout.), Normal tone, Cranial nerves 3-12 NL ( 2-12 grossly intact.) Psych/Mental Status: Appropriate, Normal Affect Lab/DI/Studies Reviewed: 12/01/16 05:05 12/01/16 05:05 Laboratory Results - last 24 hr 11/30/16 11/30/16 11/30/16 16:05 16:05 16:05 WBC 9.7 RBC 4.20 Hgb 14.2 Hct 41.2 MCV 98 MCH 33.9 H MCHC 34.6 RDW 12.5 Plt Count 296 MPV 8.4 Neut % (Auto) 76.3 H Lymph % (Auto) 14.2 L Perkins % (Auto) 8.2 Eos % (Auto) 0.4 Baso % (Auto) 0.9 Absolute Neuts (auto) 7.37 Absolute Lymphs (auto) 1.36 PT 11.1 INR 1.1 APTT 27.7 Puncture Site pH pCO2 pO2 HCO3 Total CO2 Base Excess FiO2 % Specimen Drawn By Sodium 136 L Potassium 3.7 Chloride 100 Carbon Dioxide 25 Anion Gap 15 BUN 9 Creatinine 0.80 Estimated GFR (MDRD) > 60 Glucose 100 H Calculated Osmolality 258 L Calcium 8.4 Total Bilirubin 0.5 AST 25 ALT 46 Alkaline Phosphatase 81 Troponin I < 0.01 Oba-P-Eapdfjlqgil Pept 48 Total Protein 7.4 Albumin 4.0 Triglycerides Cholesterol LDL Cholesterol, Calc VLDL Cholesterol, Calc HDL Cholesterol Cholesterol/HDL Ratio 11/30/16 11/30/16 11/30/16 17:30 18:48 21:50 WBC RBC Hgb Hct MCV MCH MCHC RDW Plt Count MPV Neut % (Auto) Lymph % (Auto) Perkins % (Auto) Eos % (Auto) Baso % (Auto) Absolute Neuts (auto) Absolute Lymphs (auto) PT INR APTT Puncture Site Right radial pH 7.470 H pCO2 36.0 pO2 57.0 L HCO3 26.2 H Total CO2 27.3 H Base Excess 2.7 H FiO2 % 21% Specimen Drawn By Stana Sodium Potassium Chloride Carbon Dioxide Anion Gap BUN Creatinine Estimated GFR (MDRD) Glucose Calculated Osmolality Calcium Total Bilirubin AST ALT Alkaline Phosphatase Troponin I < 0.01 < 0.01 Pmp-E-Ayalaopqgmu Pept Total Protein Albumin Triglycerides Cholesterol LDL Cholesterol, Calc VLDL Cholesterol, Calc HDL Cholesterol Cholesterol/HDL Ratio 12/01/16 12/01/16 05:05 05:05 WBC 5.4 RBC 3.91 L Hgb 13.5 Hct 39.0 MCV 100 H MCH 34.5 H MCHC 34.6 RDW 12.9 Plt Count 274 MPV 8.9 Neut % (Auto) Lymph % (Auto) Perkins % (Auto) Eos % (Auto) Baso % (Auto) Absolute Neuts (auto) Absolute Lymphs (auto) PT INR APTT Puncture Site pH pCO2 pO2 HCO3 Total CO2 Base Excess FiO2 % Specimen Drawn By Sodium 134 L Potassium 4.1 Chloride 97 L Carbon Dioxide 25 Anion Gap 16 BUN 12 Creatinine 0.70 Estimated GFR (MDRD) > 60 Glucose 202 H Calculated Osmolality 264 L Calcium 8.8 Total Bilirubin AST ALT Alkaline Phosphatase Troponin I Hqj-Z-Kjcfvqmfdjo Pept Total Protein Albumin Triglycerides 103 Cholesterol 152 LDL Cholesterol, Calc 100.4 H VLDL Cholesterol, Calc 20.6 HDL Cholesterol 31.0 L Cholesterol/HDL Ratio 4.9 - Assessment (1) Acute exacerbation of COPD with asthma Acute J44.1 - CHRONIC OBSTRUCTIVE PULMONARY DISEASE W (ACUTE) EXACERBATION; J45.901 - UNSPECIFIED ASTHMA WITH (ACUTE) EXACERBATION Comment/Plan: COPD exacerbation, severe. Plan: Nebs of Duoneb q 6 hours scheduled and albuterol q 2 hours prn. Sputum culture ordered. IV ceftriaxone and IV azithromycin. IV methylprednisolone. Continuous oxygen support. Keep sats below 95% due to COPD. (2) Chest pain Acute R07.9 - CHEST PAIN, UNSPECIFIED Qualifiers: Chest pain type: chest pain on breathing Qualified Code(s): R07.1 - Chest pain on breathing Comment/Plan: Rule out myocardial infarction. Plan: Obtain cardiac enzymes x 3. Place patient on telemetry. Give patient oxygen, aspirin. Give nitroglycerin, and morphine as needed for chest pain. Give statin. Stress test has been ordered for the morning. Patient has been advised, if the stress test is negative, to follow up with the primary care provider for evaluation of other potential causes of the chest pain. Note: if her COPD is not improving by the morning, then may need to hold off on the stress test. (3) Hypoxemia Acute R09.02 - HYPOXEMIA Comment/Plan: Patient has dyspnea. Patient's PO2 is low. Technically, she meets criteria for acute respiratory failure, but she appears to be improving, so we will use the diagnosis of hypoxia. Plan: Place patient on oxygen by Venti Mask 40% and adjust as needed. Monitor oxygen saturation levels and keep O2 sats greater than 92%. (4) Depression Chronic F32.9 - MAJOR DEPRESSIVE DISORDER, SINGLE EPISODE, UNSPECIFIED Qualifiers: Depression Type: dysthymia Qualified Code(s): F34.1 - Dysthymic disorder (5) Tobacco abuse Acute Z72.0 - TOBACCO USE Comment/Plan: CESSATION DISCUSSION Case Care Discussed with: Patient, Nursing Staff Education/Counseling Given To: Patient Education/Counseling Given Regarding: Diagnosis Total Time: 38 MIN Critical Care: No Code: 78975 (12+) (407)
[2016-12-01] MEDS ORDERED: SESTAMIBI 8 MCI V IV ONE (15:35)
[2016-12-01] MEDS: PROBIOTIC BLEND TAB PO SCH (16:06)
--- NOTE | 2016-12-01 17:03 | CAPUEKG ---
[place], [place] Test Date: 2016-11-30 Pat Name: MAN MORALEZ Department: Room: 451 Gender: Female Architectural Sales Consultant: BARBARA SHAH: Requested By: Order Number: Reading MD: Taras Sepulveda Measurements Intervals [place] Rate: 98 P: 47 [place]: 164 QRS: 38 QRSD: 74 T: 10 QT: 276 QTc: 352 Interpretive Statements Normal sinus rhythm Nonspecific T wave abnormality diffusely No change from prior tracing. Abnormal ECG Electronically Signed On 12-01-16 17:03:03 EST by Taras Sepulveda <[id number]> [id number]
--- NOTE | 2016-12-01 17:06 | CAPUEKG ---
[place], [place] Test Date: 2016-12-01 Pat Name: MAN MORALEZ Department: Room: 451 Gender: Female Clinical Research Nurse: PABLO: Requested By: Order Number: Reading MD: Taras Sepulveda Measurements Intervals [place] Rate: 77 P: 59 [place]: 174 QRS: 22 QRSD: 76 T: 25 QT: 394 QTc: 445 Interpretive Statements Normal sinus rhythm Normal ECG Electronically Signed On 12-01-16 17:05:28 EST by Taras Sepulveda <[id number]> [id number]
[2016-12-01] MEDS: MORPHINE 2 MG/ML INJECTION IV PRN (21:24)
[2016-12-01] MEDS: ESCITALOPRAM OXALATE 10 MG TAB PO SCH (21:28)
[2016-12-01] MEDS: PRAVASTATIN 40 MG TABLET PO SCH (21:28)
[2016-12-01] MEDS: CETIRIZINE HCL 10 MG TAB PO SCH ×2 (21:29)
[2016-12-01] MEDS: ENOXAPARIN 60 MG/0.6 ML PFS SQ SCH (21:29)
[2016-12-01] MEDS: LEVOTHYROXINE 100 MCG, LEVOTHYROXINE 75 MCG PO SCH ×2 (21:29)
[2016-12-02] MEDS: AZITHROMYCIN 500 MG in D5W 250 ML IV SCH (00:32)
[2016-12-02] MEDS: Albuterol/Ipratropium Neb 3 ML NEB NEB SCH ×4 (01:15→20:32)
[2016-12-02] MEDS: LISINOPRIL 5 MG TAB PO SCH (08:17)
[2016-12-02] MEDS: CARVEDILOL 3.125 MG TAB PO SCH ×2 (08:17→22:28)
[2016-12-02] MEDS: DIVALPROEX SODIUM 125 MG CAP PO SCH ×2 (08:22→22:15)
[2016-12-02] MEDS: METHYLPREDNISOLONE 125 MG/2 ML VIAL IV SCH ×2 (08:22→16:35)
[2016-12-02] MEDS: PRAVASTATIN 40 MG TABLET PO SCH ×2 (08:22→22:16)
[2016-12-02] MEDS: FOLIC ACID 1 MG TAB PO SCH ×2 (11:14→16:35)
[2016-12-02] MEDS: PROBIOTIC BLEND TAB PO SCH ×2 (11:14→16:35)
[2016-12-02] MEDS: ENOXAPARIN 60 MG/0.6 ML PFS SQ SCH (16:35)
[2016-12-02] MEDS ORDERED: PEG-ELECTROLYTE 17 GM PACK PO ONE (18:36)
--- NOTE | 2016-12-02 18:36 | GENMEDPROG ---
Chief Complaint: less L chest pleuritic pain cough still there Notes Reviewed: Yes Events from last night noted and discussed with Clinical Staff Current Medication List: Reviewed Currently: Reports: Cough, Wheezing (THIS AM) DVT Prophylaxis: No - Physical Examination Vital Signs and I&O: Last Vital Signs Temp 97.0 F L 12/02/16 18:26 Pulse 82 12/02/16 18:26 Resp 20 12/02/16 18:26 BP 100/58 L 12/02/16 18:26 Pulse Ox 94 12/02/16 18:26 Oxygen Pulse Oxygen Saturation 94 O2 Device Nasal Cannula Oxygen Flow Rate 2 Fraction of Inspired Oxygen ( 40 FIO2) Intake & Output 11/29/16 11/30/16 12/01/16 12/02/16 23:59 23:59 23:59 23:59 Intake Total 1471 455 Output Total 1400 550 Balance 71 -95 Patient's weight 102.92 kg 102.829 kg 102.603 kg General: Alert HEENT: Normal (Normocephalic, atraumatic;EOMI.Sclera white, Nares patent, without discharge or bleeding. No oropharyngeal lesions or erythema. Mucous membranes are dry.) Neck: Non-tender, Full range of motion, Normal Trachea alignment, Normal inspection (No cervical lymphadenopathy. No supraclavicular lymphadenopathy.), No Masses palpable, Supple Lymphatics: Normal (no adenopathy) Respiratory: Diminished. negative: Rales, Rhonchi, Stridor, Tachypnea, Wheezes Cardiovascular: Regular rate and rhythm (No bradycardia or tachycardia), Normal S1, No Gallops,Rubs/Murmurs, Normal S2, Good Pedal Pulses (DP pulses 2+ bilaterally) GI: Normal bowel sounds (normal active sounds), Soft (non-distended), Non tender , No hepatospenomegaly, No masses, Obese (BMI 37.7) Extremities/Musculoskeletal: Normal pulses (DP pulses 2+ bilaterally) Skin: Warm,Dry and Intact, No rashes, No significant lesion Neurological: Strength at 5/5 X4 ext (Motor 5/5 throughout.), Normal tone, Cranial nerves 3-12 NL ( 2-12 grossly intact.) Psych/Mental Status: Appropriate, Normal Affect Lab/DI/Studies Reviewed: 12/01/16 05:05 12/01/16 05:05 - Assessment (1) Acute exacerbation of COPD with asthma Acute J44.1 - CHRONIC OBSTRUCTIVE PULMONARY DISEASE W (ACUTE) EXACERBATION; J45.901 - UNSPECIFIED ASTHMA WITH (ACUTE) EXACERBATION Comment/Plan: COPD exacerbation, severe. Plan: Nebs of Duoneb q 6 hours scheduled and albuterol q 2 hours prn. Sputum culture ordered. IV ceftriaxone and IV azithromycin. IV methylprednisolone. Continuous oxygen support. Keep sats below 95% due to COPD. (2) Chest pain Acute R07.9 - CHEST PAIN, UNSPECIFIED Qualifiers: Chest pain type: chest pain on breathing Qualified Code(s): R07.1 - Chest pain on breathing Comment/Plan: Rule out myocardial infarction. Plan: Obtain cardiac enzymes x 3. Place patient on telemetry. Give patient oxygen, aspirin. Give nitroglycerin, and morphine as needed for chest pain. Give statin. Stress test has been ordered for the morning. Patient has been advised, if the stress test is negative, to follow up with the primary care provider for evaluation of other potential causes of the chest pain. Note: if her COPD is not improving by the morning, then may need to hold off on the stress test. (3) Hypoxemia Acute R09.02 - HYPOXEMIA Comment/Plan: Patient has dyspnea. Patient's PO2 is low. Technically, she meets criteria for acute respiratory failure, but she appears to be improving, so we will use the diagnosis of hypoxia. Plan: Place patient on oxygen by Venti Mask 40% and adjust as needed. Monitor oxygen saturation levels and keep O2 sats greater than 92%. (4) Depression Chronic F32.9 - MAJOR DEPRESSIVE DISORDER, SINGLE EPISODE, UNSPECIFIED Qualifiers: Depression Type: dysthymia Qualified Code(s): F34.1 - Dysthymic disorder (5) Tobacco abuse Acute Z72.0 - TOBACCO USE Comment/Plan: CESSATION DISCUSSION X 10 MIN (6) Hyperglycemia Acute R73.9 - HYPERGLYCEMIA, UNSPECIFIED Comment/Plan: Blood sugar over 200 today likely associated with steroids, check glycohemoglobin and urine microalbumin. Case Care Discussed with: Patient, Nursing Staff, Resource Management Education/Counseling Given To: Patient Education/Counseling Given Regarding: Diagnosis, Treatment Total Time: 37 min plus 10 minutes discussing smoking cessation Critical Care: No Code: 99529 (12+) (407)
[2016-12-02] MEDS: OXYCODONE HCL 5 MG TABLET PO PRN (20:22)
[2016-12-02] MEDS: LEVOTHYROXINE 100 MCG, LEVOTHYROXINE 75 MCG PO SCH ×2 (22:15)
[2016-12-02] MEDS: CETIRIZINE HCL 10 MG TAB PO SCH (22:15)
[2016-12-02] MEDS: ESCITALOPRAM OXALATE 10 MG TAB PO SCH (22:16)
[2016-12-03] MEDS: CEFTRIAXONE 1 GM in D5W 100 ML IV SCH (00:19)
[2016-12-03] MEDS: AZITHROMYCIN 500 MG in D5W 250 ML IV SCH (01:28)
[2016-12-03] MEDS: Albuterol/Ipratropium Neb 3 ML NEB NEB SCH ×2 (01:52→07:28)
[2016-12-03] MEDS ORDERED: METHYLPREDNISOLONE 40 MG/1 ML VIAL IV SCH (04:00)
[2016-12-03] MEDS: DIVALPROEX SODIUM 125 MG CAP PO SCH (08:16)
[2016-12-03] MEDS: PRAVASTATIN 40 MG TABLET PO SCH (08:16)
[2016-12-03] MEDS: CARVEDILOL 3.125 MG TAB PO SCH (08:16)
[2016-12-03] MEDS: LISINOPRIL 5 MG TAB PO SCH (08:17)
--- NOTE | 2016-12-03 11:08 | PCM.DCS92 ---
- Final/Secondary Discharge Diagnosis (1) Acute exacerbation of COPD with asthma Acute J44.1 - CHRONIC OBSTRUCTIVE PULMONARY DISEASE W (ACUTE) EXACERBATION; J45.901 - UNSPECIFIED ASTHMA WITH (ACUTE) EXACERBATION Present on Admission: Yes Comment: COPD exacerbation, severe. Plan: Nebs of Duoneb q 6 hours scheduled and albuterol q 2 hours prn. Sputum culture ordered. IV ceftriaxone and IV azithromycin. IV methylprednisolone. Continuous oxygen support. Keep sats below 95% due to COPD. (2) Chest pain Acute R07.9 - CHEST PAIN, UNSPECIFIED Present on Admission: Yes chest pain on breathing R07.1 - Chest pain on breathing Comment: Rule out myocardial infarction. Plan: Obtain cardiac enzymes x 3. Place patient on telemetry. Give patient oxygen, aspirin. Give nitroglycerin, and morphine as needed for chest pain. Give statin. Stress test has been ordered for the morning. Patient has been advised, if the stress test is negative, to follow up with the primary care provider for evaluation of other potential causes of the chest pain. Note: if her COPD is not improving by the morning, then may need to hold off on the stress test. (3) Hypoxemia Acute R09.02 - HYPOXEMIA Present on Admission: Yes Comment: to qualify (4) Depression Chronic F32.9 - MAJOR DEPRESSIVE DISORDER, SINGLE EPISODE, UNSPECIFIED Present on Admission: Yes dysthymia F34.1 - Dysthymic disorder (5) Tobacco abuse Acute Z72.0 - TOBACCO USE Present on Admission: Yes Comment: CESSATION DISCUSSION Discharge Condition: Stable Physician Follow up/Referrals: Ryan Patino MD [Primary Care Provider] - One Week New Prescriptions: Azithromycin [Zithromax Tri-[place]] 500 mg PO DAILY #3 tablet Benzonatate [Tessalon] 200 mg PO TID #30 capsule Cefdinir [Omnicef] 300 mg PO BID #10 cap Probiotic Blend [Dari Q] 1 tab PO BIDLS #30 tablet Varenicline [Chantix] 1 mg PO BID #60 tablet Varenicline [Chantix] 0.5 mg PO QAM #1 bot Discharge Home Medication List Clonazepam 0.5 mg PO TID 12/08/13 [History Confirmed 11/30/16 Last Taken ] Dicyclomine HCl [Bentyl] 10 mg PO Q6H PRN 12/08/13 [History Confirmed 11/30/16 Last Taken 11/29/16] Divalproex Sodium [Depakote Sprinkle] 375 mg PO BID 12/08/13 [History Confirmed 11/30/16 Last Taken 11/29/16] Escitalopram Oxalate [Lexapro] 20 mg PO DAILY 12/08/13 [History Confirmed Last Taken 11/29/16] Folic Acid 1 mg PO BID 12/08/13 [History Confirmed 11/30/16 Last Taken 11/29/16] Gemfibrozil [Lopid] 600 mg PO DAILY 12/08/13 [History Confirmed 11/30/16 Last Taken 11/29/16] Pravastatin [Pravachol] 40 mg PO BID 12/08/13 [History Confirmed 11/30/16 Last Taken 11/29/16] Albuterol Sulfate [Ventolin] 2.5 mg NEB Q6H 04/29/14 [History Confirmed Last Taken 11/29/16] Nebulizer [Erapid Nebulizer] 1 item NEB UNK 03/14/15 [History Confirmed Last Taken 11/29/16] Albuterol Sulfate [Proair Hfa] 2 puff INH Q6H PRN 05/31/15 [History Confirmed Last Taken 11/29/16] Aspirin [Aspirin EC] 81 mg PO DAILY 05/31/15 [History Confirmed 11/30/16 Last Taken 11/29/16] Levothyroxine Sodium [Synthroid] 175 mcg PO DAILY 05/31/15 [History Confirmed Last Taken 11/29/16] Oxycodone Immediate Release [Oxycodone Immediate Release (OxyIR)] 5 mg PO Q6H PRN #10 tab 08/12/15 [Rx Confirmed 11/30/16 Last Taken Unknown] Cetirizine HCl [Zyrtec] 10 mg PO DAILY 11/30/16 [History Confirmed 11/30/16 Last Taken 11/29/16] Azithromycin [Zithromax Tri-[place]] 500 mg PO DAILY #3 tablet 12/03/16 [Rx Last Taken Unknown] Benzonatate [Tessalon] 200 mg PO TID #30 capsule 12/03/16 [Rx Last Taken Unknown ] Cefdinir [Omnicef] 300 mg PO BID #10 cap 12/03/16 [Rx Last Taken Unknown] Probiotic Blend [Dari Q] 1 tab PO BIDLS #30 tablet 12/03/16 [Rx Last Taken Unknown] Varenicline [Chantix] 0.5 mg PO QAM #1 bot 12/03/16 [Rx Last Taken Unknown] Varenicline [Chantix] 1 mg PO BID #60 tablet 12/03/16 [Rx Last Taken Unknown] 12/01/16 05:05 12/01/16 05:05 O2 Device: Room Air Diet at Discharge: As Tolerated Activity: As Tolerated Discontinue use of:: Alcohol, All Illegal Substances, All Types of Tobacco - DC Summary Notes Hospital Course Note:: Discharge summary on patient named MAN MORALEZ admitted to [facility] on 11/30/16 by Eduardo Matson MD. Date of discharge is []. Total Time: 39 min Code: 70798 (>30min.) - Physical Exam Vital Signs: Last Vital Signs Temp 97.6 F 12/03/16 05:03 Pulse 79 12/03/16 08:13 Resp 20 12/03/16 05:03 BP 120/61 12/03/16 08:13 Pulse Ox 91 12/03/16 07:31 Oxygen Pulse Oxygen Saturation 91 O2 Device Nasal Cannula Oxygen Flow Rate 1 Fraction of Inspired Oxygen ( 40 FIO2) Constitutional: Alert Oriented to: Time, Person, Place - HEENT Head: Normal ( normocephalic) Eye: Normal (PERRL, EOMI, Sclera white) Oropharynx: Normal (Pharynx:Moist without exudate,Gums-no swelling) ENT EAC: Normal (No oropharyngeal lesions or erythema. Mucous membranes are dry. ) TMJ: Normal Nose: No Symptoms Reported (septum midline) - Respiratory/Cardiovascular Respiratory: Diminished. negative: Rales, Rhonchi, Stridor, Tachypnea, Wheezes Cardiovascular: Normal (RRR , Normal S1, S2. No murmurs, rubs, or gallops. PMI non-displaced. Carotids: no carotid bruits. No bradycardia or tachycardia. DP pulses 2+ bilaterally.) - GI Auscultation: Normal (NABS) Palpation: Normal (Soft,No rebound or guarding, non distended) Tenderness: Non tender Amaro's Sign: Negative Rectal Exam: Deferred - Musculoskeletal Back: Normal (Non-Tender) Extremities: Normal (Normal tone, Pulses 2+ No cyanosis or edema, FROM) - Integumentary Skin: Normal (Warm dry no rashes) Lymphatics: Normal (no adenopathy) - Neurologic Memory Impaired: Normal Motor Function: Normal (Motor 5/5 throughout.Normal tone, Pulses 2+ No cyanosis or edema, FROM) Cranial Nerve: Normal (CN II-XII intact sensation, strength 5/5) Cerebellar: Normal Mood Description: Normal Perception: Normal
[2016-12-03 11:23] VITALS: BP 120/60; TEMP 97.8
[2016-12-03] MEDS ORDERED: PEG-ELECTROLYTE 17 GM PACK PO SCH (12:00)
[2016-12-03] MEDS: FOLIC ACID 1 MG TAB PO SCH (12:08)
[2016-12-03] MEDS: PROBIOTIC BLEND TAB PO SCH (12:08)
[2016-12-03 16:33] VITALS: PULSE 97
--- NOTE | 2016-12-04 16:14 | CAPUCARD ---
REST CARDIOLITE SCAN The patient underwent only rest testing for unclear reasons. I did not evaluate the patient. I only get the scans and was told that the patient was discharged from the hospital. IMPRESSION: The rest images reveal reduced uptake in the anterior segment of unclear significance. [id number]
== END 2016-12-03 13:03 | disposition home or self-care (01) | DRG 140 ==
LOC: ED 15:48 → EDINP 18:28 → PCU 19:39 → MPS3 12-01 22:03
PROVIDERS: ADMIT Internal Medicine; ATTEND Internal Medicine
PROC: 039B3ZZ Drainage of Right Radial Artery, Percutaneous Approach (ICD-10-PCS; principal; 2016-11-30)
DX: J44.1 Chronic obstructive pulmonary disease with (acute) exacerbation (principal); J45.901 Unspecified asthma with (acute) exacerbation; R09.02 Hypoxemia; F32.9 Major depressive disorder, single episode, unspecified; F17.210 Nicotine dependence, cigarettes, uncomplicated; E78.00 Pure hypercholesterolemia, unspecified; M19.90 Unspecified osteoarthritis, unspecified site; E03.9 Hypothyroidism, unspecified; Z79.899 Other long term (current) drug therapy; Z79.82 Long term (current) use of aspirin; E78.5 Hyperlipidemia, unspecified; T38.0X5A Adverse effect of glucocorticoids and synthetic analogues, initial encounter; Y92.239 Unspecified place in hospital as the place of occurrence of the external cause; R73.9 Hyperglycemia, unspecified
CPT/HCPCS: 36415; 36600; 71020; 78451; 78452; 80048; 80053; 80061; 82043; 82803; 83036; 83880; 84484; 85025; 85027; 85610; 85730; 87040; 87804; 93005; 94640; 96372; 96374; 98960; 99283; 99406; A4216; A9500; G0237; J0456; J0696; J1250; J1650; J2270; J2920; J2930; J3490; J7060; J7070; J7620